=== PATIENT | male | born 1975 | race Caucasian/White ===

== ENCOUNTER 2020-06-24 17:45 | Emergency (ER) | payer MEDICARE, MEDICAID ==
[~2020-06-24] VITALS: Ht 188 cm; Wt 127.2 kg
--- NOTE | 2020-06-24 18:09 | EKG ---
[address] [address] Test Date: 2020-06-24 Test Time: 17:50:15 Pat Name: PJ NEGRO Department: Room: Gender: M Trumpet Player: HERNAN : 1975 Requested By: KEY SANCHEZ Order Number: [id number] Reading MD: Measurements Intervals [place] Rate: 64 P: 0 MI: 214 QRS: 28 QRSD: 96 T: 24 QT: 406 QTc: 419 Interpretive Statements SINUS RHYTHM INCOMPLETE RIGHT BUNDLE BRANCH BLOCK NO SPECIFIC ECG ABNORMALITIES RI6.02 No previous ECG available for comparison
[2020-06-24 18:40] LABS: BASO % 1 % (0-3); EOS # 0.3 x10^3/uL (0.0-0.7); EOS % 6 % (0-3); HEMATOCRIT 40.8 % (39.0-53.0); HEMOGLOBIN 13.7 g/dL (13.0-17.5); LYMPH # 1.6 x10^3/uL (1.0-4.8); LYMPH % 27 % (24-48); MEAN CORPUSCULAR HEMOGLOBIN 32 pg (25-35); MEAN CORPUSCULAR HGB CONC 34 g/dL (31-37); MEAN CORPUSCULAR VOLUME 94 fL (79-100); MONO # 0.6 x10^3/uL (0.0-1.1); MONO % 10 % (0-9); NEUT # 3.4 x10^3uL (1.8-7.7); NEUT % 56 % (31-73); PLATELET COUNT 216 x10^3/uL (140-400); RED BLOOD COUNT 4.36 x10^6/uL (4.30-5.70); RED CELL DISTRIBUTION WIDTH 14.2 % (11.5-14.5)
[2020-06-24 18:52] LABS: CALCIUM 9.3 mg/dL (8.5-10.1); GFR 80.8; POTASSIUM 3.8 mmol/L (3.5-5.1)
[2020-06-24 19:04] LABS: ALBUMIN 3.6 g/dL (3.4-5.0); ALBUMIN/GLOBULIN RATIO 0.9 (1.0-1.7); MAGNESIUM 1.9 mg/dL (1.8-2.4); TOTAL BILIRUBIN 0.5 mg/dL (0.2-1.0); TOTAL PROTEIN 7.5 g/dL (6.4-8.2)
--- NOTE | 2020-06-24 19:18 | RAD ---
INDICATION: Reason: cp / Spl. Instructions: / History: COMPARISON: January 2011 FINDINGS: 2 frontal views of the chest obtained. Cardiac mediastinal silhouette is prominent in size but likely exaggerated by portable technique. No definite focal consolidation or pulmonary edema. IMPRESSION: * No focal airspace consolidation or edema. Electronically signed by: Macario Abel MD (06/24/2020 7:16 PM) [id number]
[2020-06-24 20:53] VITALS: BP 168/103
--- NOTE | 2020-07-08 19:01 | PHYS DOC ---
Past History Past Medical History: Anxiety, COPD, Depression, High Cholesterol, Hypertension Additional Past Medical Histor: HIRSCHSPRUNG, RLS, BRADYCARDIA, EMPHYSEMA, SICK SINUS SYNDROME Past Surgical History: Colectomy, Pacemaker Additional Past Surgical Histo: SINUS Smoking: Non-smoker Alcohol Use: Occasionally Drug Use: None Adult General Chief Complaint Chief Complaint: CHEST PAIN [facility] HPI Patient is a 45-year-old male with a history of COPD and hypertension who presents with several days of intermittent chest discomfort, substernal, with no radiation after having intercourse with his . States that the discomfort seems to come and go. States that he can, while sitting there or while doing an activity and does not seem to matter. Cannot identify any aggravating or alleviating factors. Denies any recent dyspnea on exertion, orthopnea, PND or edema. Denies any alcohol or drug use. Endorses cigarette smoking. States currently he does not have any chest pain. Denies any recent travel, illnesses, known ill contacts, fevers, Covid/flu symptoms. Denies any abdominal pain, nausea, vomiting, dysuria, hematuria or blood in the stool. Review of Systems Review of Systems Constitutional: Denies fever or chills [] Eyes: Denies change in visual acuity, redness, or eye pain [] HENT: Denies nasal congestion or sore throat [] Respiratory: Denies cough or shortness of breath [] Cardiovascular: No additional information not addressed in HPI [] GI: Denies abdominal pain, nausea, vomiting, bloody stools or diarrhea [] : Denies dysuria or hematuria [] Musculoskeletal: Denies back pain or joint pain [] Integument: Denies rash or skin lesions [] Neurologic: Denies headache, focal weakness or sensory changes [] Endocrine: Denies polyuria or polydipsia [] All other systems were reviewed and found to be within normal limits, except as documented in this note. Family History Family History Review of systems otherwise unremarkable except noted in HPI Allergies Allergies Allergies Coded Allergies Type Severity Reaction Last Updated Verified haloperidol Allergy Unknown 06/24/20 Yes meperidine Allergy Unknown 06/24/20 Yes Physical Exam Physical Exam Constitutional: Well developed, well nourished, no acute distress, non-toxic appearance. [] HENT: Normocephalic, atraumatic, bilateral external ears normal, oropharynx moist, no oral exudates, nose normal. [] Eyes: conjunctiva normal, no discharge. [] Neck: Normal range of motion, no tenderness, supple, no stridor. [] Cardiovascular:Heart rate regular rhythm, no murmur [] Lungs & Thorax: Bilateral breath sounds clear to auscultation [] Abdomen: Bowel sounds normal, soft, no tenderness, no masses, no pulsatile masses. [] Skin: Warm, dry, no erythema, no rash. [] Back: No tenderness, Extremities: No tenderness, no cyanosis, no clubbing, ROM intact, no edema. [] Neurologic: Alert and oriented X 3, normal motor function, normal sensory function, no focal deficits noted. [] Psychologic: Affect normal, judgement normal, mood normal. [] Current Patient Data Vital Signs Vital Signs Date Time Temp Pulse Resp B/P (MAP) Pulse Ox O2 Delivery O2 Flow Rate FiO2 06/24/20 20:53 62 13 168/103 (124) 97 06/24/20 17:55 98.5 Room Air EKG EKG Normal rate, normal rhythm, no STEMI, right bundle branch block. [] Radiology/Procedures Radiology/Procedures []NDICATION: Reason: cp / Spl. Instructions: / History: COMPARISON: January 2011 FINDINGS: 2 frontal views of the chest obtained. Cardiac mediastinal silhouette is prominent in size but likely exaggerated by portable technique. No definite focal consolidation or pulmonary edema. IMPRESSION: * No focal airspace consolidation or edema. Electronically signed by: Macario Abel MD (06/24/2020 7:16 PM) [id number] Heart Score C/O Chest Pain: Yes HEART Score for Chest Pain: HEART Score for Chest Pain Response (Comments) Value History Slighlty/Non-Suspicious 0 ECG Nonspecific Repolarizatio 1 Age >45 - < 65 1 Risk Factors 1 or 2 Risk Factors 1 Troponin < Normal Limit 0 Total 3 Risk Factors: Risk Factors: DM, Current or recent (<one month) smoker, HTN, HLP, family history of CAD, obesity. Risk Scores: Risk Factors: DM, Current or recent (<one month) smoker, HTN, HLP, family history of CAD, obesity. Course & Med Decision Making Course & Med Decision Making Patient is a 45-year-old male who presents with a few days of intermittent chest discomfort Vital signs notable for hypertension. Physical exam noted above. EKG noted above and not concerning for STEMI. Troponins x2 not concerning. Chest x-ray not concerning. On reassessment patient feeling well and asymptomatic. Offered overnight admission for observation and serial EKGs and troponins. Patient politely declined stating he would just rather go home and call his primary care physician the next day. Gave the risks of going home including significant morbidity, disability and/or if he were currently having a cardiac event. Patient stated he has been going on for couple days, I feel fine now now talk to my doctor in the morning. Gave strict return precautions to the ED. Family grateful, verbalized understanding and agreed with plan of discharge. [] Dragon Disclaimer Dragon Disclaimer This electronic medical record was generated, in whole or in part, using a voice recognition dictation system. Departure Departure: Impression: Primary Impression: Chest pain Disposition: 01 DC HOME SELF CARE/HOMELESS Condition: GOOD Patient Instructions: Chest Pain (Nonspecific) Additional Instructions: Please read all the attached information. As discussed your basic laboratory analysis was not concerning. Your EKG which looks at your heart was abnormal with a right bundle branch block but did not show any current signs of heart attack. Your enzymes, that look at your heart damage were negative x2. The fact that this been going on for about 3 days is reassuring. You were offered admission for observation but stated that you were currently asymptomatic and having no chest pain, and did not want to stay in the hospital. Discussed the risks of heart attack including significant illness and/or . Discussed the need for decreased exertional activities until you see your primary care physician. Please call your primary care physician first thing in the morning to discuss your ED visit and set up an outpatient stress test as soon as possible. Please come back to the emergency department immediately if you have any new or concerning symptoms as discussed. NOLAN BLANCHARD MD Jul 08, 2020 19:01
== END 2020-06-24 21:11 | disposition home or self-care (01) ==
LOC: ER 17:45
DX: R07.89 Other chest pain (principal); J44.9 Chronic obstructive pulmonary disease, unspecified; I10 Essential (primary) hypertension; E78.00 Pure hypercholesterolemia, unspecified; F41.9 Anxiety disorder, unspecified; F17.210 Nicotine dependence, cigarettes, uncomplicated; Z95.0 Presence of cardiac pacemaker; Z88.8 Allergy status to other drugs, medicaments and biological substances
CPT/HCPCS: 36415; 71045; 80053; 83690; 83735; 83880; 84484; 85025; 93005; 99283